=== PATIENT | male | born 1995 | race Caucasian/White ===

== ENCOUNTER 2020-11-18 18:05 | Emergency (ER) | payer OTHER ==
[~2020-11-18] VITALS: Ht 177.8 cm; Wt 56.7 kg
[~2020-11-18 18:05] MED LIST: MOTION RELIEF25 MG PO; Zofran4 MG PO
[2020-11-18] MEDS ORDERED: IBUP600 PO (18:44)
[2020-11-18] MEDS ORDERED: Amoxicillin500 MG PO (18:44)
== END 2020-11-18 18:51 | disposition home or self-care (01) ==
LOC: ER 18:05
DX: K04.7 Periapical abscess without sinus (principal); F17.210 Nicotine dependence, cigarettes, uncomplicated; Z79.899 Other long term (current) drug therapy
CPT/HCPCS: 99282